=== PATIENT | female | born 1950 | race Caucasian/White ===

== ENCOUNTER 2018-06-09 00:36 | Outpatient (CLI) | payer MEDICARE, BC, SELFPAY ==
--- NOTE | 2018-06-09 14:30 | DI.RAD_ITS ---
SYMPTOMS/DIAGNOSIS: SCREENING FOR OSTEOPOROSIS IN POSTMENOPAUSAL WOMAN, Z78.0 DEXA SCAN: Routine examination. No priors. Evaluation of the lateral spine image shows no compression deformities. Evaluation of the left hip shows a total T score of -0.9 and a Z score of 0.5. This is within normal limits. Evaluation of the lumbar spine shows a total T score of -1.3 and a Z score of 0.6. This is consistent with osteopenia and an increased fracture risk. There is no evidence of osteoporosis. IMPRESSION: Osteopenia in the lumbar spine.
--- NOTE | 2018-06-09 14:48 | DI.MAMMO_ITS ---
SYMPTOMS/DIAGNOSIS: SCREENING, Z12.31 MAMMOGRAMS: Mammograms were interpreted according to the usual protocol including computer analysis with CAD system, tomosynthesis and C view imaging. Comparison is with the prior examinations. No masses or microcalcifications are seen. There is nothing to suggest malignancy. IMPRESSION: Negative mammogram. Routine screening is recommended. Category 1 , breast density A. MQSA ASSESSMENT OF FINDINGS: Negative. Category 1. Patient will receive a letter notifying them of these results. BI-RAD category A. The breasts are almost entirely fatty.
== END 2018-06-09 00:56 ==
PROVIDERS: PCP Family Medicine; Visit Provider Family Medicine
DX: Z12.31 Encounter for screening mammogram for malignant neoplasm of breast (principal); M85.88 Other specified disorders of bone density and structure, other site; Z78.0 Asymptomatic menopausal state
CPT/HCPCS: 77063; 77067; 77080

== ENCOUNTER 2019-06-03 15:54 | Outpatient (REF) | payer MEDICARE, BC, SELFPAY ==
[2019-06-03 13:59] LABS: Anion Gap 7.7 mmol/L (3-11); BUN 15 mg/dL (7-18); CO2 30.3 mmol/L (21.0-32.0); CREATININE 0.78 mg/dL (0.55-1.02); Calcium 8.8 mg/dL (8.5-10.1); Calculated LDL 49 mg/dL; Chloride 108 mmol/L (98-107); Cholesterol 119 mg/dL (50-200); Glucose 86 mg/dL (70-100); HDL Cholesterol 61 mg/dL (40-60); Potassium 3.8 mmol/L (3.5-5.1); Sodium 146 mmol/L (136-145); Triglyceride 47 mg/dL (30-150)
[2019-06-03 14:32] LABS: Vitamin D 25 Total 29.9 ng/ml (30-100)
== END 2019-06-03 16:14 ==
LOC: NCHCN 15:54
PROVIDERS: PCP Family Medicine; Visit Provider Family Medicine
DX: E78.5 Hyperlipidemia, unspecified (principal); Z72.0 Tobacco use; M85.80 Other specified disorders of bone density and structure, unspecified site
CPT/HCPCS: 80048; 80061; 82306

== ENCOUNTER 2021-04-12 11:05 | Emergency (ER) | payer MEDICARE, BC, SELFPAY ==
[2021-04-12] VITALS (25 sets, daily range): BP systolic 168–209; BP diastolic 77–107; PULSE 57–92; RESP 12–27; TEMP 36.9; O2SAT 96–99
--- NOTE | 2021-04-12 11:00 | RT.EKG_ITS ---
APPROVED REPORT Exam: Resting ECG Reason for Exam: dizzy Patient Location: E HR:71 bpm ECG Measurements Heart Rate 71 AXIS IA 127 P 74 QRSd 89 QRS -2 QT 425 T 48 QTc 463 Conclusion Sinus rhythm...normal P axis, V-rate 60- 99 Probable left atrial enlargement...P >50mS, <-0.10mV V1 Nonspecific T abnormalities, lateral leads...T <-0.10mV, I aVL V5 V6. Sinus. No STEMI. I have reviewed and interpreted ECG and agree with software generated interpretation.
--- NOTE | 2021-04-12 11:24 | W.ED.GENAD ---
Discharge Plan Disposition Patient Disposition: HOME Condition: Improving Discharge Details Clinical Impression: Elevated blood pressure reading, Headache Primary Care Provider: Alia Lopez ED Provider: Yeny Forte Home Meds and New Rx's Prescriptions: New propranolol 40 mg tablet 40 mg PO BID Qty: 60 RF: 0 Continued multivitamin [Daily Multi-Vitamin] 1 EACH tablet 1 tab PO DAILY RF: 0 aspirin 81 MG tablet,chewable 81 mg PO HS RF: 0 atorvastatin 20 mg tablet 20 mg PO HS RF: 0 varenicline [Chantix Continuing Month Box] 1 mg tablet RF: 0 Discharge Instructions Instructions: Vertigo (ED), Hypertension (ED) Additional Instructions: Your workup here today including exam, imaging and labs, are reassuring. I am concerned that her elevated blood pressure caused your headache. Your symptoms during the night sound like vertigo but you were not having these symptoms at the time of evaluation today. Please discuss further with your primary care. Please take the Propranolol as prescribed. Take a dose this evening. Please follow up with your primary care next week for reevaluation. Please continue to monitor your blood pressure at home and keep a journal of your readings. If you develop shortness of breath, chest pain, headache or other new/worsening symptoms please seek care urgently once again. Referrals: Alia Lopez MD [Primary Care Provider] - Discharge Data Discharge Date/Time-TO BE ENTERED AT DEPARTURE: 04/12/21 14:11 Medical Decision Making Patient is a pleasant 70-year-old female presenting today from accompanied by her , with chief complaint of elevated blood pressure. She reports that middle of the night she rolled over and had a sudden onset of room spinning. States this lasted approximately 10 minutes and spontaneously resolved while she was at rest. This morning, she had no recurrence of symptoms but has been took her blood pressure and noted that a diastolic to be over 100. Systolic approaching 200. This is unusual for the patient. She does not have previous diagnosis of hypertension is not on any antihypertensive medications. She denies any chest pain or shortness of breath. No GI upset. States the right side of her neck tight for the past week and relates this to sleeping in unusual position. She has never had any vertiginous symptoms historically. She denies any headache. No recent illness. No fevers or chills. Denies any visual changes. No change in bowel or bladder habits. On exam, patient appears very anxious and is crying easily. She reports that this year is very difficult for her and she has had loss of multiple loved ones. She believes that much of this is stress mediated. Declines any anxiolytics. Her blood pressure is 209/96. Normal heart rate. She does not febrile, normal O2. Normal cardiac auscultation, lungs are clear. No extremity edema. 2+ distal pulses. Abdomen benign. Neuro exam is intact. EKG was obtained and reviewed by Dr. Lewis. Patient is in normal sinus rhythm with a heart rate of 71. Nonspecific T wave abnormalities. No STEMI. Shortly after exam, patient began to endorse a headache. Will give 5 mg of Lopressor. BURDEN completely resolved after lopressor. SBP in the 160s FINDINGS: MEDIASTINUM: Normal. HEART: Normal. PULMONARY VASCULATURE: Normal. LUNGS: Clear. PLEURAL SPACE: No pleural effusion or pneumothorax. BONE:Unremarkable for age. IMPRESSION: No acute abnormality. Labs reviewed, no signficant abnormality. No proteinurea. No luekocytosis. Normal electrolytes, kidney and liver function. Discussed with patient. Diagnosesd with symptomatic hypertension. Will start on antihypertensive. She continues to cry frequently when discussing her current social stressors. Questioning if propranolol is good choice as this may also help with her anxiety. Consulted with Dr. Lopez who agreed with choice of propranolol. Recommends Propranolol 40mg BID. She will attempt to get her in promptly for nurse visit next week. Patient, her and I discussed these recommendations. Patient requesting d/c. Feeling much imrpved. She will take dose of propranolol this evening. Encouraged stress reduction. She iwll f/u with PCP next week. She will journal BP at home. Strict return precautions were discussed. All of her quesitons and concerns were addressed, she is in agreement with this plan. HPI General Mode of arrival: ambulatory. Date/Time Provider Initiated Documentation: 04/12/21 11:08. Limitations to Documentation: no limitations. Information obtained by: patient and RN notes reviewed. History of Present Illness 70 year old F presents to the emergency department with the chief complaint of elevated BP, dizziness, described as moderate, Quality is described as other (denies pain), and is localized to the head and neck (tight right neck). Patient reports no radiation. Patient started experiencing this hour(s) and it has been now resolved (vertigo symptoms are resolved). No relieving factors improve symptom(s), Movement worsens symptoms (came on when she rolled over in the night) . Patient notes denies chest pain, cough, fever/chills, headaches, loss of appetite, nausea/vomiting, rash, shortness of breath, syncope and weakness. Patient did receive the following treatments prior to arrival, none Related Data Home Medications Medication Instructions Recorded Confirmed aspirin 81 mg PO HS 03/27/13 04/12/21 multivitamin [Daily Multi-Vitamin] 1 tab PO DAILY 03/27/13 04/12/21 atorvastatin 20 mg PO HS 04/12/21 04/12/21 propranolol 40 mg PO BID #60 tab 04/12/21 varenicline [Chantix Continuing mg 04/12/21 04/12/21 Month Box] Previous Rx's Medication Instructions Recorded propranolol 40 mg PO BID #60 tab 04/12/21 Allergies Allergy/AdvReac Type Severity Reaction Status Date / Time glycopyrrolate [From Joanie] AdvReac Intermediate FLUSHING,INCREASED Unverified 04/12/21 11:21 HEART RATE General Stated Complaint: Dizzy/Sync VANDANA: 2 Review of Systems Constitutional Constitutional: Reports as per HPI, Denies chills, Denies fever(s), Denies headache(s), Denies lethargy and Denies poor appetite Eyes Eyes: Denies change in vision ENT Ears, Nose, Mouth, and Throat: Denies abnormal hearing, Reports vertigo, Reports dizziness, Denies ear discharge, Denies otalgia, Denies headache(s), Denies hearing loss and Denies tinnitus Cardiovascular Cardiovascular: Reports as per HPI, Denies chest pain, Denies chest pain with activity, Denies lightheadedness, Denies radiating jaw, neck or arm pain, Denies dyspnea and Denies dyspnea on exertion Respiratory Respiratory: Reports as per HPI, Denies chest congestion, Denies cough, Denies pain on inspiration, Denies pain with cough, Denies dyspnea, Denies dyspnea on exertion and Denies wheezing Gastrointestinal Gastrointestinal: Reports as per HPI, Denies abdominal pain, Denies diarrhea, Denies nausea and Denies vomiting Musculoskeletal Musculoskeletal: Reports as per HPI and Denies back pain Integumentary/Breasts Skin/Breast: Reports as per HPI and Denies rash Neurologic Neurologic: Reports as per HPI, Denies abnormal hearing, Reports vertigo, Reports dizziness and Denies headache(s) Allergic/Immunologic Allergic/Immunologic: Denies wheezing [facility] Social History Smoking/Tobacco Use Status: Current every day Tobacco Type: cigarettes Smoking risk assessment performed?: Yes Alcohol Intake: never Drug use: Never Substance use type: does not use Do you feel safe at home: Yes Do you feel safe in your relationship?: Yes Exam Const General: cooperative, healthy appearing, comfortable, no acute distress, well developed and anxious Nutritional Appearance: well nourished and overweight Orientation: alert, awake and oriented x3 HENMT Head: normal to inspection and normocephalic Ears: hearing grossly normal bilaterally, external ears normal and TM's normal bilaterally Face and sinus: normal facial exam Mouth: oral mucosae normal and moist mucous membranes Throat: posterior oropharynx normal Eyes General: appearance normal, both eyes and all related structures Visual Renee: normal visual renee by confrontation Alignment and Position: alignment normal and position normal Eyelids: eyelids normal Pupils: PERRL, normal by confrontation and accommodation normal EOM: EOM intact bilaterally and No nystagmus Neck Neck: normal visual inspection and no meningeal signs Resp Effort & Inspection: normal respiratory effort, able to speak in complete sentences and no respiratory distress Auscultation: clear to auscultation bilaterally, no rales, no rhonchi and no wheezes Cardio Rate: regular rate Rhythm: regular rhythm Heart Sounds: S1 normal and S2 normal GI Inspection: normal to inspection Palpation: soft, no hepatosplenomegaly, guarding and nontender Skin General skin exam: no rashes or lesions noted Trauma: no lacerations or abrasions Neuro General: patient alert, patient awake and patient oriented x3 Cranial Nerves: no nystagmus Cognition: normal cognition Speech: speech normal Gait: normal gait Extrem General: normal to inspection, capillary refill normal, no pedal edema, no calf tenderness and normal gait Psych Appearance: grossly normal and well kempt Mental Status: mental status grossly normal Speech and Movement: speech and movement normal Course Vital Signs Vital signs: Vital Signs Temperature 36.9 C 04/12/21 11:15 Pulse 85 04/12/21 11:15 Respiratory Rate 16 04/12/21 11:15 Blood Pressure 209/96 H 04/12/21 11:15 Pulse Oximetry 99 04/12/21 11:15 Temperature 36.9 C 04/12/21 11:15 Temperature Source Skin 04/12/21 11:15 Pulse 85 04/12/21 11:15 Respiratory Rate 16 04/12/21 11:15 Respiratory Effort Non-Labored 04/12/21 11:20 Blood Pressure 209/96 H 04/12/21 11:15 Blood Pressure Position Sitting 04/12/21 11:15 Pulse Oximetry 99 04/12/21 11:15 Oxygen Delivery Method Room Air 04/12/21 11:15 Oxygen Flow Rate 0 04/12/21 11:15 Pain Level 0 04/12/21 11:15
--- NOTE | 2021-04-12 11:30 | DI.CT_ITS ---
Exam(s) CT BRAIN NECK CTA EXAM: CT BRAIN NECK CTA CLINICAL HISTORY: vertigo, right sided neck discomfort, elevated BP. TECHNIQUE: Imaging Protocol: Axial CT angiography was performed with multi-slice acquisition and mu lti-planar and/or 3D reconstructions. CONTRAST MATERIAL: Intravenous: Omnipaque 350 Contrast volume: 85 cc COMPARISON: No exams were available for comparison FINDINGS: CT Head W/O and W contrast: Ventricles and Extra axial spaces: Normal in size and morphology for the patient's age. Hemorrhage: None. Cerebral parenchyma: Normal. Midline shift: None. Brainstem/Cerebellum: Normal. Calvarium: Normal. Visualized Paranasal sinuses/Mastoids: Clear. Soft Tissues: Unremarkable. Enhancement: Normal. CTA Brain W: Internal Carotid Arteries: Petrous: Normal. Cavernous: Normal. Cerebral: Normal. Middle Cerebral Arteries: Right: No aneurysm, occlusion or significant stenosis. Left: No aneurysm, occlusion or significant stenosis. Anterior Cerebral Arteries: Right: No aneurysm, occlusion or significant stenosis. Left: No aneurysm, occlusion or significant stenosis. Posterior cerebral Arteries: Right: No aneurysm, occlusion or significant stenosis. Left: No aneurysm, occlusion or significant stenosis. Vertebral Arteries: Right: No aneurysm, occlusion or significant stenosis. Left: No aneurysm, occlusion or significant stenosis. Basilar Artery: No aneurysm, occlusion or significant stenosis. CTA Neck W: Common Carotid: Right: No aneurysm, occlusion or significant stenosis. Left: No aneurysm, occlusion or significant stenosis. External Carotid: Right: No aneurysm, occlusion or significant stenosis. Left: No aneurysm, occlusion or significant stenosis. Internal Carotid: Quite tortuous, extending toward the midline anterior to the thoracic spine. No vi sible plaque. Right: No aneurysm, occlusion or significant stenosis. Left: No aneurysm, occlusion or significant stenosis. Vertebral Artery: Right: No aneurysm, occlusion or significant stenosis. Left: No aneurysm, occlusion or significant stenosis. Lung Apices: Normal. Bones: Degenerative changes in the cervical spine.. Soft Tissues: Normal. IMPRESSION: 1. Normal CTA examination of the [place]. 2. Unremarkable CT Head. 3. Tortuous internal carotid arteries, otherwise normal CTA examination of the neck. RADIATION DOSE DELIVERED: 1,879.77mGy.cm Total DLP DATA REPOSITORY: All CT scans at this facility are submitted to the National Radiology Data Registry (NRDR) Dose Index Registry (DIR) with the [employer] (A[employer]). RADIATION OPTIMIZATION: All CT scans at this facility use at least one of these dose optimization te chniques: automated exposure control; mA and/or kV adjustment per patient size (includes targeted exa ms where dose is matched to clinical indication); or iterative reconstruction.
[2021-04-12 11:47] LABS: Abs Immature Grans 0.02 10^3/uL (0.0-0.06); Absolute Basophil Count 0.05 10^3/uL (0.0-0.2); Absolute Eosinophil Count 0.19 10^3/uL (0.0-0.7); Absolute Lymphocyte Count 1.76 10^3/uL (1.2-3.4); Absolute Neutrophil Count 5.51 10^3/uL (1.2-6.7); Basophils % 0.6; Eosinophils % 2.4; HCT 47.2 % (36.0-46.0); HGB 14.9 g/dL (11.2-15.7); Immature Grans % 0.2; Lymphocytes % 21.9; MCH 28.9 pg (27.0-33.0); MCHC 31.6 % (32.0-36.0); MCV 91.5 fL (80-95); MPV 11.7 fL (8.0-11.0); Monocytes % 6.2; Neutrophils % 68.7; Nucleated RBC 0 %; Platelet Count 215 10^3/uL (130-400); RBC 5.16 10^6/uL (3.93-5.22); RDW 12.5 % (11.7-14.6); RDW-SD 42.3 fL; WBC 8.03 10^3/uL (4.4-10.8)
[2021-04-12] MEDS: Metoprolol 5 MG/5 ML VIAL IVP (11:58)
[2021-04-12 12:01] LABS: INR 1.1 (0.9-1.1); PTT Activated 22.7 sec (21.0-27.5); Prothrombin Time 11.4 sec (9.3-11.0)
[2021-04-12 12:10] LABS: ALT 28 U/L (14-59); AST 35 U/L (15-37); Albumin 3.9 g/dL (3.4-5.0); Alkaline Phosphatase 114 U/L (46-116); Anion Gap 6.9 mmol/L (3-11); BUN 12 mg/dL (7-18); Bilirubin, Total 0.6 mg/dL (0.2-1.0); CO2 28.1 mmol/L (21.0-32.0); CREATININE 0.7 mg/dL (0.55-1.02); Calcium 9.4 mg/dL (8.5-10.1); Chloride 108 mmol/L (98-107); Glucose 98 mg/dL (74-106); Potassium 4.7 mmol/L (3.5-5.1); Sodium 143 mmol/L (136-145); TSH 1.56 uIU/mL (0.36-3.74); Total Protein 7.4 g/dL (6.4-8.2); Troponin I < 0.05 ng/mL (<0.06)
[2021-04-12 12:28] LABS: Magnesium 1.9 mg/dL (1.8-2.4)
[2021-04-12 12:29] LABS: Bilirubin Negative (Negative); Blood Negative (Negative); Clarity Clear (Clear); Glucose Negative (Negative); Ketones Negative (Negative); Leukocyte Esterase Negative (Negative); Nitrite Negative (Negative); Urobilinogen 0.2 EU/dL (Up TO 0.2)
--- NOTE | 2021-04-12 13:00 | DI.RAD_ITS ---
Exam(s) XR CHEST 2V PA LATERAL EXAM: XR CHEST 2V PA LATERAL CLINICAL HISTORY: HTN urgency TECHNIQUE: 2D digital imaging was performed. COMPARISON: No exams were available for comparison FINDINGS: MEDIASTINUM: Normal. HEART: Normal. PULMONARY VASCULATURE: Normal. LUNGS: Clear. PLEURAL SPACE: No pleural effusion or pneumothorax. BONE:Unremarkable for age. IMPRESSION: No acute abnormality. DATA REPOSITORY: RADIATION DOSE DELIVERED:
[2021-04-12] MEDS: Omnipaque 350 MG/ML 100 ML BTL IJ (14:07)
== END 2021-04-12 14:11 | disposition home or self-care (01) ==
PROVIDERS: Emergency Provider Physician Assistant; PCP Family Medicine
DX: R03.0 Elevated blood-pressure reading, without diagnosis of hypertension (principal); R51.9 Headache, unspecified; F41.9 Anxiety disorder, unspecified; Z79.82 Long term (current) use of aspirin; R42 Dizziness and giddiness; R79.1 Abnormal coagulation profile
CPT/HCPCS: 36415; 70496; 70498; 80053; 93005; 96374; 99285; 71046; 81003; 83735; 84443; 84484; 85025; 85610; 85730; 93010; 99284; J3490

== ENCOUNTER 2021-05-16 10:05 | Outpatient (REF) | payer MEDICARE, BC, SELFPAY ==
[2021-05-16 20:35] LABS: Anion Gap 5.5 mmol/L (3-11); BUN 20 mg/dL (7-18); CO2 31.5 mmol/L (21.0-32.0); CREATININE 0.7 mg/dL (0.55-1.02); Calcium 9.2 mg/dL (8.5-10.1); Chloride 108 mmol/L (98-107); Glucose 79 mg/dL (74-106); Potassium 4.4 mmol/L (3.5-5.1); Sodium 145 mmol/L (136-145)
== END 2021-05-16 10:06 | disposition home or self-care (01) ==
LOC: NCHCN 10:05
PROVIDERS: PCP Family Medicine; Visit Provider Family Medicine
DX: Z51.81 Encounter for therapeutic drug level monitoring (principal)
CPT/HCPCS: 80048

== ENCOUNTER 2021-06-28 01:14 | Outpatient (CLI) | payer MEDICARE, BC, SELFPAY ==
--- NOTE | 2021-06-28 10:43 | DI.MAMMO_ITS ---
Exam(s) MAMMO SCREENING EXAM: MAMMO SCREENING CLINICAL HISTORY: SCREENING MAMMO FOR BREAST CANCER Z12.31. TECHNIQUE: Bilateral full field digital CC and MLO mammographic images were obtained with 3D tomosyn thesis and utilizing computer aided detection (CAD). COMPARISON: Prior mammograms dating back to 2011, the most recent being May 2018. FINDINGS: There are no CAD designations. There are no new spiculated masses nor malignant appearing microcalcification groups. There is no significant architectural distortion nor skin thickening-retraction. IMPRESSION: No radiographic evidence of malignancy. BI-RADS Category 1 - Negative Breast Density - Category B - Scattered areas of fibroglandular density Breast density Category C or D implies that the patient has dense breast tissue. Dense breast tissue can make it harder to find cancer on a mammogram. Dense breast tissue is also associated with an incr eased risk of breast cancer. This information about the result of the mammogram report was provided to the patient to raise their awareness. Use this report when you speak with the patient about their risks for breast cancer, which includes their family history. At that time, you may recommend additional screening tests (Ultrasoun d or MRI) as these tests may add significant information. A negative radiographic report should not delay biopsy if a dominant or clinically suspicious mass is present. Up to ten percent of cancers are not identified on mammography. A negative report may reinforce clinical impression. Adenosis and dense breasts may obscure an underlying neoplasm. False positive reports average 6 to 10%. Patient will receive a letter notifying them of these results.
== END 2021-06-28 01:34 ==
PROVIDERS: PCP Family Medicine; Visit Provider Family Medicine
DX: Z12.31 Encounter for screening mammogram for malignant neoplasm of breast (principal)
CPT/HCPCS: 77063; 77067

== ENCOUNTER 2021-06-29 18:25 | Outpatient (REF) | payer MEDICARE, BC, SELFPAY ==
[2021-06-29 18:17] LABS: Anion Gap 8.6 mmol/L (3-11); BUN 17 mg/dL (7-18); CO2 29.4 mmol/L (21.0-32.0); CREATININE 0.8 mg/dL (0.55-1.02); Calcium 9.3 mg/dL (8.5-10.1); Chloride 108 mmol/L (98-107); Glucose 96 mg/dL (74-106); Potassium 3.9 mmol/L (3.5-5.1); Sodium 146 mmol/L (136-145)
== END 2021-06-29 18:26 | disposition home or self-care (01) ==
LOC: NCHCN 18:25
PROVIDERS: PCP Family Medicine; Visit Provider Family Medicine
DX: I10 Essential (primary) hypertension (principal)
CPT/HCPCS: 80048

== ENCOUNTER 2022-02-18 13:32 | Emergency (ER) | payer MEDICARE, BC, SELFPAY ==
[2022-02-18] VITALS (66 sets, daily range): BP systolic 84–133; BP diastolic 32–63; PULSE 65–85; RESP 18; TEMP 36.6–37; O2SAT 95–100
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
--- NOTE | 2022-02-18 14:00 | DI.RAD_ITS ---
Exam(s) XR WRIST RT COMPLETE EXAM: XR WRIST RT COMPLETE CLINICAL HISTORY: NAREN. TECHNIQUE: 2D digital imaging was performed. COMPARISON: No exams were available for comparison FINDINGS: 3 views There is an impacted and dorsally angulated fracture of the distal radius. Fracture line violates th e radiocarpal joint. There is also an avulsed fracture of the base of the ulnar styloid.. On 1 image there is linear lucency at the level the waist of the scaphoid. Cannot exclude subtle sca phoid waist fracture. Scapholunate distance is normal. IMPRESSION: Impacted fracture of distal radius involving the radiocarpal joint. Ulnar styloid fracture. Possible fracture of the scaphoid DATA REPOSITORY: RADIATION DOSE DELIVERED:
[2022-02-18] MEDS: Acetaminophen 325 MG TAB 650 MG PO (14:15)
[2022-02-18] MEDS: Ibuprofen 600 MG TAB PO (14:15)
--- NOTE | 2022-02-18 16:00 | DI.RAD_ITS ---
Exam(s) XR WRIST RT LIMITED EXAM: XR WRIST RT LIMITED CLINICAL HISTORY: s/p reduction. TECHNIQUE: 2D digital imaging was performed. COMPARISON: CR XR WRIST RT COMPLETE from 02/18/2022 FINDINGS: Two views Post closed reduction views reveal some mint in alignment fracture fragments radius and styloid. IMPRESSION: DATA REPOSITORY: RADIATION DOSE DELIVERED:
[2022-02-18 17:21] LABS: Source Nasal/Nares
[2022-02-18 18:12] LABS: COVID-19 PCR Negative (Negative)
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
== END 2022-02-18 17:30 | disposition home or self-care (01) ==
PROVIDERS: Emergency Provider Physician Assistant; PCP Family Medicine
DX: S52.501A Unspecified fracture of the lower end of right radius, initial encounter for closed fracture (principal); S52.611A Displaced fracture of right ulna styloid process, initial encounter for closed fracture; I95.9 Hypotension, unspecified; I10 Essential (primary) hypertension; F17.210 Nicotine dependence, cigarettes, uncomplicated; Z20.822 Contact with and (suspected) exposure to COVID-19; V86.56XA Driver of dirt bike or motor/cross bike injured in nontraffic accident, initial encounter; Y92.481 Parking lot as the place of occurrence of the external cause
CPT/HCPCS: 87635; 99283; 99284; 25605; 73100; 73110; J3490

== ENCOUNTER 2022-02-19 10:53 | Day surgery (SDC) | payer MEDICARE, BC, SELFPAY ==
[2022-02-19] VITALS (10 sets, daily range): BP systolic 84–132; BP diastolic 11–60; PULSE 63–83; RESP 16–74; TEMP 36.2–36.6; O2SAT 94–99; BMI 31.0
--- NOTE | 2022-02-19 11:39 | W.PM.DSUDISC ---
Discharge Plan Disposition Patient Disposition: HOME Condition: Good Discharge Details Reason For Visit: (r) Orif Distal Radius Attending Provider: Rolly Richardson Primary Care Provider: Alia Lopez Home Meds and New Rx's Prescriptions: New acetaminophen 500 mg capsule 1,000 mg PO Q8H PRN PRNQty: 90 0RF ibuprofen 600 mg tablet 600 mg PO TID Qty: 90 0RF tramadol 50 mg tablet 50 mg PO Q6H PRNQty: 10 0RF Continued multivitamin [Daily Multi-Vitamin] 1 EACH tablet 1 tab PO DAILY aspirin 81 MG tablet,chewable 81 mg PO HS atorvastatin 20 mg tablet 20 mg PO HS varenicline [Chantix Continuing Month Box] 1 mg tablet 1 mg PO DAILY PRN propranolol 40 mg tablet 40 mg PO BID Qty: 60 0RF chlorthalidone 25 mg tablet 25 mg PO DAILY lisinopril 40 mg tablet 40 mg PO QHS amlodipine 2.5 mg tablet 2.5 mg PO DAILY Qty: 20 0RF Discharge Instructions Additional Instructions: Wrist Fracture Fixation Discharge Instructions Activity: You should keep the hand/wrist elevated as much as possible for the first few days. You may use the other fingers as tolerated but avoid trying to do too much too soon. You may perform light activities with the splint in place. Dressing/Cast: Your splint should stay in place at all times. Do NOT get it wet. You may loosen the INDIGO wrap if you feel it is too tight and then rewrap more loosely. Medications: - You should take Tylenol and Ibuprofen for baseline pain control. - You have been prescribed a stronger pain medication, Tramadol, for breakthrough pain. - You may apply ice over the wrist, just double bag so it doesn't get wet. Follow-up: 10-14 days Referrals: Rolly Richardson MD [ [facility] STAFF PHYSICIAN] - Equipment/Supplies: Splint Activity:: Activity as Tolerated Remove Dressings/Wound Care:: Do Not Remove Shower/Bathe:: Cover Diet:: As Tolerated Discharge Orders Discharge Orders: Discharge Order (Routine); Ordered 02/19/22 Ordered By: Emma [place]
[2022-02-19] MEDS: Lactated Ringers 1,000 ML 80 ML IV (11:55)
--- NOTE | 2022-02-19 12:01 | W.ANESPRE ---
General Info Date of Service Date Performed: 02/19/22 Height: 5 ft 4 in Weight: 82.1 kg Body Mass Index (BMI): 31.0 Surgical Procedure: Operation Date: 02/19/22 14:40 Proposed Procedure Side Surgeon p Wrist ORIF Distal Radius Right Rolly Richardson MD Meds Allergies and Home Medications Allergies Allergy/AdvReac Type Severity Reaction Status Date / Time glycopyrrolate [From Robinul] AdvReac Intermediate FLUSHING,INCREASED Unverified 02/19/22 11:22 HEART RATE Home Medication Medication Instructions Recorded aspirin 81 mg chewable tablet 81 mg PO HS 03/27/13 multivitamin (Daily Multi-Vitamin 1 tab PO DAILY 03/27/13 tablet) atorvastatin 20 mg tablet 20 mg PO HS 04/12/21 propranolol 40 mg tablet 40 mg PO BID #60 tabs 04/12/21 varenicline 1 mg tablet (Chantix 1 mg PO DAILY PRN 04/12/21 Continuing Month Box) amlodipine 2.5 mg tablet 2.5 mg PO DAILY #20 tabs 02/18/22 chlorthalidone 25 mg tablet 25 mg PO DAILY 02/18/22 lisinopril 40 mg tablet 40 mg PO QHS 02/18/22 acetaminophen 500 mg capsule 1,000 mg PO Q8H PRN PRN #90 caps 02/19/22 ibuprofen 600 mg tablet 600 mg PO TID #90 tabs 02/19/22 oxycodone 5 mg tablet 5 mg PO Q4H PRN #10 tabs 02/19/22 Current Visit Medications: Current Medications Generic Name Dose Route Start Last Admin Trade Name Christiano PRN Reason Stop Dose Admin Acetaminophen 650 mg 02/19/22 11:39 Acetaminophen 325 Mg Tab PO Q4H PRN PRN Ringer's Solution 1,000 mls @ 80 mls/hr 02/19/22 06:00 IV 03/21/22 23:59 INFUSION ROSENDO Cefazolin Sodium/Dextrose 2 gm in 50 mls @ 100 mls/hr 02/19/22 06:00 Ancef Duplex IVPB 03/21/22 23:59 PREOP ROSENDO Ondansetron HCl 4 mg/ Sodium 52 mls @ 200 mls/hr 02/19/22 11:39 Chloride IVPB Q6H PRN PRN IV Miscellaneous Supplies 1 each 02/19/22 06:00 Iv Access IV 03/21/22 23:59 DIRECTED ROSENDO Oxycodone HCl 5 mg 02/19/22 11:39 Oxycodone 5 Mg Tab PO Q3H PRN PRN Pain Sodium Chloride 0 ml 02/19/22 06:00 Normal Saline Flush 10 Ml Syr IV 03/21/22 23:59 PRN PRN Sodium Chloride 0 ml 02/19/22 06:00 Normal Saline 10 Ml Vial IJ 03/21/22 23:59 DIRECTED PRN Sterile Water 0 ml 02/19/22 06:00 Water,Injection,Sterile 10 Ml Vial IJ 03/21/22 23:59 DIRECTED PRN PFSH Active Problems Active Problems: Problem Status Onset Code Benign hypertension I10 Chest pain 03/27/13 R07.9 Bradycardia R00.1 Bilateral tubal ligation Elevated blood pressure reading R03.0 Headache R51.9 Distal radius fracture S52.509A Fracture of distal end of ulna S52.609A Hypotension I95.9 Closed fracture of right distal radius and ulna S52.501A, S52.601A Medical History Medical History (Updated 02/19/22 @ 11:30 by Kristy Williamson RN) Bradycardia Chest pain Hypercholesteremia Hypertension Surgical History Surgical History (Updated 02/19/22 @ 11:29 by Kristy Williamson RN) H/O tubal ligation Tobacco Smoking/Tobacco Use Status: Current every day Tobacco Type: cigarettes Smoking cigarettes per day: 8 Alcohol Alcohol Intake: never Substance Use Substance use: Never Substance use type: does not use Vital Signs and Lab Results Vital Signs Most Recent Vital Signs in EMR: Most Recent Vital Signs Temp Pulse Resp BP Pulse Ox 36.6 C 83 18 118/56 L 99 02/19/22 11:14 02/19/22 11:14 02/19/22 11:14 02/19/22 11:14 02/19/22 11:14 Lab Results Blood Type / Crossmatch: No Data to Display Complete Blood Count: No Data to Display Complete Metabolic Panel: No Data to Display Liver Function Panel: No Data to Display Coagulation Panel: No Data to Display Cardiac Panel: No Data to Display Arterial Blood Gas: No Data to Display Venous Blood Gas: No Data to Display Pancreas Panel: No Data to Display Thyroid Panel: No Data to Display Infectious Disease: Coronavirus (COVID-19)(PCR) Negative (Negative) 02/18/22 17:03 Coronavirus 2019 Source Nasal/Nares 02/18/22 17:03 Blood Cultures: No Data to Display Toxicology Panel: No Data to Display Imaging and Studies Imaging and Studies Study information below may be from another EMR and interpreted by another provider. Please see original notes in EMR for more complete details. EKG Summary: Conclusion Sinus rhythm...normal P axis, V-rate 60- 99 Probable left atrial enlargement...P >50mS, <-0.10mV V1 Nonspecific T abnormalities, lateral leads...T <-0.10mV, I aVL V5 V6. Stress Test Summary: EJECTION FRACTION: 70% GATED WALL MOTION: CONCLUSION: NORMAL PERFUSION Anesthesia Assessment and Plan Anesthesia History Personal History: No History of Anesthesia Complications Family History: No Family History of Anesthesia Complications Exercise Tolerance Exercise Tolerance: Metabolic Equivalents>4 Pertinent Negatives Pertinent Negatives: No Symptoms of GERD, No Major Cardiovascular Symptoms or Complaints and No Major Pulmonary Symptoms or Complaints Cardiac & Pulmonary Exam Cardiac Exam: Normal S1/S2 Heart Sounds Pulmonary Exam: Clear Bilateral Breath Sounds Implantable Cardiac Device Does patient have a Pacemaker or an ICD?: No Airway Exam Known Difficult Airway: No Mallampati Class: 2 Mouth Opening: Normal (> 3cm) Thyromental Distance: Greater than 3 cm Neck Range of Motion: Full ROM Neck Circumference: Normal Teeth Condition: Normal Dentition and Removable Dentures/Plates Upper ASA Classification ASA Score: ASA 2 Emergency Case?: No NPO Status NPO Status: NPO Clears >2 hours, Solids >8 hours Anesthesia Plan Resuscitation Status: Full Code Anesthesia Technique: General Anesthesia Airway Planned: Endotracheal Tube Pain Management: Surgeon and patient request nerve block Monitors Used: Standard Monitors
--- NOTE | 2022-02-19 12:37 | W.ANESNERVE ---
Nerve Block Single Injection Procedure Date and Time Date Performed: 02/19/22 Procedure Start: 12:30 Location Where Procedure Performed Procedure Location: Operating Room Procedure Stop: 13:34 Reason Performed: Postoperative Analgesia Requesting Provider: Rolly Richardson Timeout Performed Timeout Performed: No Monitoring Used ECG, Blood Pressure and SpO2 Sterility Sterility: Hand Hygiene, Surgical Mask, Eye Protection and Chlorhexidine Sedation Given During Procedure Sedation Given (Indicate Dose Given): No Sedation given Patient Mental Status Patient Mental Status: Awake Nerve Block 1st Nerve Block: Laterality: Right Block Type: Supraclavicular Needle / Catheter Used: 80mm SonoPlex II Local Anesthetic Bolus (Indicate Dose Given): Lidocaine used for local infiltration of skin, Injected in 3-5ml increments after negative blood aspiration and Bupivacaine 0.5% Dose:: 15 mL Additives (Indicate Dose Given): Precedex Dose:: 30 mcg Ultrasound: Sterile probe cover and gel used Ultrasound Image Saved?: Yes Nerve Stimulator: Not Used Paresthesia: None Procedure Tolerated: No Complications Procedure Outcome: Successful Performed By: Candy Castañeda
--- NOTE | 2022-02-19 12:45 | DI.RAD_ITS ---
Exam(s) XR WRIST RT LIMITED EXAM: XR WRIST RT LIMITED CLINICAL HISTORY: right wrist fracture TECHNIQUE: 2D and realtime digital imaging was performed. CONTRAST MATERIAL: Refer to procedure report. COMPARISON: CR XR WRIST RT LIMITED from 02/18/2022 FINDINGS: Fluoroscopy was provided for Dr. Richardson during the performance of a reduction and internal fixatio n of the distal radial fracture. Please refer to the procedure report for complete details. Ka,r=0.23 mGy IMPRESSION: RADIATION DOSE DELIVERED:
[2022-02-19] MEDS: ceFAZolin 2 GM/50 ML BAG IVPB (13:15)
[2022-02-19] MEDS: Bupivacaine 0.25% Pres-Free 30 ML VIAL (14:00)
--- NOTE | 2022-02-19 14:57 | W.ANESPOSTOP ---
Postoperative Evaluation Date, Time and Location Date Performed: 02/19/22 Time Performed: 14:57 Patient Location: PACU Vital Signs Most Recent Imported Vital Signs: Most Recent Vital Signs Temp Pulse Resp BP Pulse Ox 36.5 C 66 17 129/47 L 96 02/19/22 14:20 02/19/22 14:45 02/19/22 14:45 02/19/22 14:45 02/19/22 14:45 Pain Score Most Recent Pain Score: Most Recent Pain Score Pain Level 2 02/19/22 14:45 Assessment Mental Status: Awake (Alert & Oriented to Patient Baseline) Airway and Respiratory Function: Patent airway with normal (patient baseline) respiratory exam Cardiovascular Function: Hemodynamically Stable Hydration Status: Adequately Hydrated Nausea & Vomiting: No Nausea or Vomiting Pain: Pain is tolerable per patient Peripheral Nerve Block: Regional nerve block not resolved at time of post operative discharge
--- NOTE | 2022-02-19 17:31 | ROE_ITS ---
Date of service: 02/19/22 Time of Service: 14:20 Operative Note Operative Note DATE OF PROCEDURE: 02/19/22 PRE-OP DIAGNOSIS: Right Distal Radius Fracture POST-OP DIAGNOSIS: same PROCEDURE: Open Reduction and Internal Fixation of Right Distal Radius SURGEON: Rolly Richardson [employer]LE[employer] SUPERVISOR: Emma Canada ANESTHESIA TYPE: General LMA/ETT and Primary Nerve Block Refer to Anesthesia Record ESTIMATED BLOOD LOSS: 10 PATHOLOGY: none sent TOURNIQUET TIME: 0 COMPLICATIONS: None Patient was transported to: PACU Patient's condition: stable Indications: Jie is a 71-year-old [id number] female who I have seen for a distal radius fracture. Given the deformity, displacement, fracture pattern, and effect on daily function, I recommended surgical fixation. I reviewed the risk of the procedure to include bleeding, infection co-pay, stiffness, damage to nerves and vessels, damage to muscles and tendons, malunion, nonunion, hardware prominence, tendon rupture, need for repeat procedures. Despite these risks, the patient elected to proceed. Findings: There is a distal radius fracture which had 2 articular segments. It was reduced and fixed with a Synthes volar locking plate. Procedure Description: Deann was greeted in the preoperative holding area. The correct patient and site was confirmed and marked. The history and physical was updated. The consent was reviewed the patient and signed. The patient was taken to the PACU for administration of regional anesthetic, supraclavicular block. The patient was taken to the operating room and placed in the supine position. All bony problems were well-padded. The right arm was placed onto a radiolucent hand table. A nonsterile tourniquet was placed high up on the arm. Prophylactic antibiotics in the form of cefazolin were administered. The right arm was prepped with ChloraPrep and draped in a standard fashion. A timeout was performed for safe surgery. A standard longitudinal incision was made overlying the flexor carpi radialis tendon starting at the distal wrist crease and moving proximally. The skin was incised sharply. The flexor carpi radialis tendon and its sheath is identified. The sheath was opened. The tendon was moved ulnarly in the floor of the sheath was incised. Blunt dissection the flexor pollicis longus muscle belly and tendon were also made radially exposing the pronator quadratus and the distal radius. The printer quadratus was elevated with an ulnar-based flap. This exposed the volar distal radius and the fracture. A ross elevator was used for full exposure of the volar surface of the distal radius. The primary fracture line was exposed. Using a series of elevators, curettes, and knife, the fracture was fully debrided of any fibrous tissue and callus formation. I used a freer elevator to help mobilize the fragments. There is 1 main fracture line across the volar aspect of the distal radius and an intra-articular portion of the dorsal, ulnar aspect mostly visible only with x-ray. I then performed a closed reduction. Using gentle traction and fracture manipulation, this reduction was held. Fluoroscopic images were used to confirm adequate reduction. An appropriately sized Synthes volar locking plate was then placed onto the bony surface of the distal radius. Was then held there with a distal radius clamp sandwiching the plate to the distal segment. A single K wire was placed through the distal end. Fluoroscopy was once again used to confirm appropriate positioning of the plate on the distal radius. A reduction K wire was placed into the slotted hole on the shaft but not tightened all the way to allow for manipulation of the distal segment onto the proximal shaft. A single nonlocking screw was placed to the distal portion of the plate securing the plate against the bone of the distal radial metaphysis and reducing the ulnar articular segment. Once again, the plate was evaluated to make sure it was aligned appropriately. The single screw was also checked to make sure it was in appropriate positioning for trajectory of future screws. The remainder of the screws within the volar locking plate were filled with locking screws. These were made sure not to penetrate the dorsal cortex. Once these were applied the proximal portion of the plate was further reduced down onto the shaft, which further reduce the distal segment. This was held in position with a tightened reduction K wire. Fluoroscopy was then used against confirm appropriate reduction. Nonlocking screws were placed within the 3 shaft screw holes. Final x-rays were obtained which demonstrated adequate reduction and positioning of hardware. The dorsal sunrise view was also obtained to ensure correct sizing of screws. The wound was then thoroughly irrigated. The pronator quadratus was reapproximated with a 0 Vicryl. The tourniquet was released and there was no notable vascular injury. The fingers were warm and well-perfused. The deep dermal layer was closed with a 2-0 Vicryl. The skin was closed with 4-0 nylon. The wound was dressed with Xeroform, 4 x 4's, web roll. A short arm splint was applied. At the end the case all counts are correct. Patient was transferred back to the PACU in stable condition.
== END 2022-02-19 16:30 | disposition home or self-care (01) ==
PROVIDERS: PCP Family Medicine; Visit Provider Student in an Organized Health Care Education/Training Program
PROC: 0PSH04Z Reposition Right Radius with Internal Fixation Device, Open Approach (ICD-10-PCS; CPT 25608; principal; 2022-02-19 14:30)
DX: S52.501A Unspecified fracture of the lower end of right radius, initial encounter for closed fracture (principal); I10 Essential (primary) hypertension; E78.00 Pure hypercholesterolemia, unspecified; F17.210 Nicotine dependence, cigarettes, uncomplicated; V39.89XA Occupant (driver) (passenger) of three-wheeled motor vehicle injured in other specified transport accidents, initial encounter
CPT/HCPCS: 25608; C1776; 76942; 73100; J0690; J1100; J1885; J2370; J2405

== ENCOUNTER 2022-03-01 09:04 | Outpatient (CLI) | payer MEDICARE, BC, SELFPAY ==
--- NOTE | 2022-03-01 09:00 | DI.RAD_ITS ---
Exam(s) XR WRIST RT LIMITED EXAM: XR WRIST RT LIMITED INDICATION: 1st post op R DISTAL RADIUS/ULNA. COMPARISON: CR XR WRIST RT LIMITED from 02/19/2022 TECHNIQUE: 2D digital imaging was performed. Two views. FINDINGS: A fixation plate is again noted along the volar aspect of the distal radius for fracture fixation . There has been no change in hardware or fracture alignment. The ulnar styloid fracture is unchanged. No new abnormalities. DATA REPOSITORY: RADIATION DOSE DELIVERED:
== END 2022-03-01 09:05 | disposition home or self-care (01) ==
LOC: DIORS 09:04
PROVIDERS: PCP Family Medicine; Referring Provider Family Medicine; Visit Provider Student in an Organized Health Care Education/Training Program
DX: S52.501D Unspecified fracture of the lower end of right radius, subsequent encounter for closed fracture with routine healing (principal); S52.601D Unspecified fracture of lower end of right ulna, subsequent encounter for closed fracture with routine healing; X58.XXXD Exposure to other specified factors, subsequent encounter; Z47.89 Encounter for other orthopedic aftercare
CPT/HCPCS: 73100

== ENCOUNTER 2022-04-01 10:04 | Outpatient (CLI) | payer MEDICARE, BC, SELFPAY ==
--- NOTE | 2022-04-01 10:00 | DI.RAD_ITS ---
Exam(s) XR WRIST RT LIMITED EXAM: XR WRIST RT LIMITED CLINICAL HISTORY: follow up. TECHNIQUE: 2D digital imaging was performed. Two images were obtained. PA and lateral views were ob tained. COMPARISON: CR XR WRIST RT LIMITED from 03/01/2022 FINDINGS: BONES: There are stable post operative changes present. No new fracture or dislocation. The distal r adial ulnar fractures are still visualized and are unchanged. JOINTS: The joint spaces are well maintained. No joint effusion is present. SOFT TISSUE: Normal. IMPRESSION: Stable postoperative changes. DATA REPOSITORY: RADIATION DOSE DELIVERED:
== END 2022-04-01 10:05 | disposition home or self-care (01) ==
LOC: DIORS 10:05
PROVIDERS: PCP Family Medicine; Referring Provider Family Medicine; Visit Provider Physician Assistant Surgical
DX: S52.501A Unspecified fracture of the lower end of right radius, initial encounter for closed fracture (principal); S52.601A Unspecified fracture of lower end of right ulna, initial encounter for closed fracture; X58.XXXA Exposure to other specified factors, initial encounter
CPT/HCPCS: 73100

== ENCOUNTER 2022-05-13 10:51 | Outpatient (CLI) | payer MEDICARE, BC, SELFPAY ==
--- NOTE | 2022-05-13 10:15 | DI.RAD_ITS ---
Exam(s) XR WRIST RT LIMITED EXAM: XR WRIST RT LIMITED INDICATION: right wrist ORIF. COMPARISON: CR XR WRIST RT LIMITED from 04/01/2022 TECHNIQUE: 2D digital imaging was performed. Two views. FINDINGS: There has been no change in fracture or hardware alignment. Continued healing. DATA REPOSITORY: RADIATION DOSE DELIVERED:
== END 2022-05-13 10:52 | disposition home or self-care (01) ==
LOC: DIORS 10:52
PROVIDERS: PCP Family Medicine; Referring Provider Family Medicine; Visit Provider Physician Assistant
DX: S52.501D Unspecified fracture of the lower end of right radius, subsequent encounter for closed fracture with routine healing (principal); S52.601D Unspecified fracture of lower end of right ulna, subsequent encounter for closed fracture with routine healing; X58.XXXD Exposure to other specified factors, subsequent encounter
CPT/HCPCS: 73100

== ENCOUNTER 2022-06-12 17:13 | Outpatient (REF) | payer MEDICARE, BC, SELFPAY ==
[2022-06-12 15:28] LABS: Anion Gap 4.9 mmol/L (3-11); BUN 14 mg/dL (7-18); CO2 32.1 mmol/L (21.0-32.0); CREATININE 0.9 mg/dL (0.55-1.02); Calcium 9.5 mg/dL (8.5-10.1); Chloride 107 mmol/L (98-107); Estimated GFR 68.35 (mL/min/1.73m2); Glucose 87 mg/dL (74-106); Potassium 4.5 mmol/L (3.5-5.1); Sodium 144 mmol/L (136-145)
== END 2022-06-12 17:14 | disposition home or self-care (01) ==
LOC: NCHCN 17:13
PROVIDERS: PCP Family Medicine; Visit Provider Family Medicine
DX: I10 Essential (primary) hypertension (principal)
CPT/HCPCS: 80048

== ENCOUNTER 2023-06-23 20:48 | Outpatient (REF) | payer MEDICARE, BC, SELFPAY ==
[2023-06-23 18:41] LABS: Anion Gap 8.4 mmol/L (3-11); BUN 28 mg/dL (7-18); CO2 30.6 mmol/L (21.0-32.0); Calcium 9.6 mg/dL (8.5-10.1); Chloride 105 mmol/L (98-107); Estimated GFR 59.86 (mL/min/1.73m2); Glucose 100 mg/dL (74-106); Potassium 3.8 mmol/L (3.5-5.1); Sodium 144 mmol/L (136-145)
== END 2023-06-23 20:49 | disposition home or self-care (01) ==
LOC: NCHCN 20:48
PROVIDERS: PCP Family Medicine; Visit Provider Family Medicine
DX: I10 Essential (primary) hypertension (principal)
CPT/HCPCS: 80048

== ENCOUNTER → 2023-07-24 00:58 | Outpatient (CLI) | payer MEDICARE, BC, SELFPAY ==
--- NOTE | 2023-07-24 | DI.DEXA_ITS ---
Exam(s) XR DEXA BONE DENSITY W/WO JUAQUIN EXAM: XR DEXA BONE DENSITY W/WO JUAQUIN CLINICAL HISTORY: OTHER DISORDER BONE DENSITY, M85.88 TECHNIQUE: [employer] C densitometer analysis of left hip, lumbar spine and left forearm. Lat eral survey image of the thoracic and lumbar spine. COMPARISON: DX XR DEXA BONE DENSITY W/WO JUAQUIN from 06/09/2018 FINDINGS: Lateral view of the thoracic and lumbar spine shows no evidence of compression fractures. Bone mineral density measurements of the lumbar spine correspond to a total T-score of -1.2, in the osteopenic range. This is not significantly changed from prior exam. Bone mineral density measurements of the left hip correspond to a total T-score of -1.1, in the oste openic range. This is not significantly changed from the prior exam.. The femoral neck T-score is -0.5. Theleft forearm bone mineral density measurements correspond to a T-score of the distal 3rd of -1.0 at the lower limit of normal. This represents a 5 percent decrease compared with 2018.. IMPRESSION: Osteopenia of the lumbar spine and hip. Borderline osteopenia of the forearm.
--- NOTE | 2023-07-24 | DI.MAMMO_ITS ---
Exam(s) MAMMO SCREENING EXAM: MAMMO SCREENING CLINICAL HISTORY: SCREENING, Z12.31 TECHNIQUE: Bilateral full field digital CC and MLO mammographic images were obtained with 3D tomosyn thesis and utilizing computer aided detection (CAD). COMPARISON: Available for comparison. FINDINGS: Masses/Architectural Distortion: None seen. Microcalcifications: No suspicious pleomorphic-type are seen. Skin Thickening/Nipple Retraction: None. IMPRESSION: 1. No significant interval change with no specific features of malignancy noted. 2. Unless there is more urgent need, screening mammography is recommended, as per [employer] guidelines. BI-RADS Category 1 - Negative Breast Density - Category A - Almost entirely fatty Breast density category C or D implies that the patient has dense breast tissue. Dense breast tissue is very common and is not abnormal but dense breast tissue can make it harder to find cancer on a ma mmogram. Also, dense breast tissue may increase their breast cancer risk. This information about the result of the mammogram report was provided to the patient to raise their awareness. Use this report when you speak with the patient about their risks for breast cancer, which includes their family hist ory. At that time, you may recommend for more screening tests (Ultrasound or MRI) as they might be us eful based on their risk. A negative radiographic report should not delay biopsy if a dominant or clinically suspicious mass is present. Up to ten percent of cancers are not identified on mammography. A negative report may reinforce clinical impression. Adenosis and dense breasts may obscure an underlying neoplasm. False positive reports average 6 to 10%. Patient will receive a letter notifying them of these results.
== END ==
PROVIDERS: PCP Family Medicine; Visit Provider Family Medicine
DX: M85.88 Other specified disorders of bone density and structure, other site (principal); Z12.31 Encounter for screening mammogram for malignant neoplasm of breast; Z13.820 Encounter for screening for osteoporosis
CPT/HCPCS: 77063; 77067; 77080

== ENCOUNTER 2025-05-02 17:18 | Outpatient (REF) | payer MEDICARE, BC, SELFPAY ==
[2025-05-02 21:41] LABS: HCT 42.5 % (36.0-46.0); HGB 13.5 g/dL (11.2-15.7); MCH 29.0 pg (27.0-33.0); MCHC 31.8 % (32.0-36.0); MCV 91 fL (80-95); MPV 12.4 fL (8.0-11.0); Platelet Count 237 10^3/uL (130-400); RBC 4.65 10^6/uL (3.93-5.22); RDW 12.4 % (11.7-14.6); RDW-SD 41.1 fL; WBC 12.39 10^3/uL (4.4-10.8)
[2025-05-02 22:03] LABS: ALT 25 U/L (14-59); AST 20 U/L (15-37); Albumin 4.0 g/dL (3.4-5.0); Alkaline Phosphatase 110 U/L (46-116); Anion Gap 6.8 mmol/L (3-11); BUN 20 mg/dL (7-18); Bilirubin, Total 0.5 mg/dL (0.2-1.0); CO2 31.2 mmol/L (21.0-32.0); Calcium 9.5 mg/dL (8.5-10.1); Chloride 102 mmol/L (98-107); Estimated GFR 59.12 (mL/min/1.73m2); Glucose 92 mg/dL (74-106); Potassium 3.9 mmol/L (3.5-5.1); Sodium 140 mmol/L (136-145); Total Protein 6.9 g/dL (6.4-8.2)
[2025-05-02 23:37] LABS: Hemoglobin A1C 5.4 % (<5.7)
[2025-05-03 15:15] LABS: Calculated LDL 88 mg/dL (<100); Cholesterol 176 mg/dL (<200); HDL Cholesterol 63 mg/dL (>or=50); Triglyceride 127 mg/dL (<150)
== END 2025-05-02 17:19 | disposition home or self-care (01) ==
LOC: NCHCN 17:18
PROVIDERS: PCP Family Medicine; Visit Provider Family Medicine
DX: I10 Essential (primary) hypertension (principal); Z13.1 Encounter for screening for diabetes mellitus; Z13.220 Encounter for screening for lipoid disorders
CPT/HCPCS: 80053; 80061; 85027; 83036

== ENCOUNTER 2025-05-05 02:07 | Outpatient (CLI) | payer MEDICARE, BC, SELFPAY ==
--- NOTE | 2025-05-05 15:35 | DI.MAMMO_ITS ---
Exam(s) MAMMO SCREENING EXAM: MAMMO SCREENING CLINICAL HISTORY: SCREENING MAMMO Z12.31 TECHNIQUE: Mammograms were interpreted according to the usual protocol including computer analysis with CAD system, tomosynthesis and C-view imaging. COMPARISON: 2014 through 2022 FINDINGS: The breasts are composed of mainly fatty density , Breast Density category A. No suspicious masses or suspicious microcalcifications are seen. No skin thickening or abnormal axillary lymph nodes are seen. There has been no significant change from prior exams. IMPRESSION: BI-RADS Category 1, Negative mammogram Yearly screening mammography is recommended. Breast Density- Category A - The breast are almost entirely fatty. Breast density Category C or D implies that the patient has dense breast tissue. Dense breast tissue can make it harder to find cancer on a mammogram. Dense breast tissue is also associated with an increased risk of breast cancer. This information about the result of the mammogram report was provided to the patient to raise their awareness. Use this report when you speak with the patient about their risks for breast cancer, which includes their family history. At that time, you may recommend additional screening tests (Ultrasound or MRI) as these tests may add significant information. A negative radiographic report should not delay biopsy if a dominant or clinically suspicious mass is present. Up to ten percent of cancers are not identified on mammography. A negative report may reinforce clinical impression. Adenosis and dense breasts may obscure an underlying neoplasm. False positive reports average 6 to 10%. Patient will receive a letter notifying them of these results.
== END 2025-05-05 02:27 ==
LOC: DI 02:07
PROVIDERS: PCP Family Medicine; Visit Provider Family Medicine
DX: Z12.31 Encounter for screening mammogram for malignant neoplasm of breast (principal); R92.313 Mammographic fatty tissue density, bilateral breasts
CPT/HCPCS: 77063; 77067

== ENCOUNTER 2025-07-05 14:23 | Outpatient (REF) | payer MEDICARE, BC, SELFPAY ==
[2025-07-05 16:15] LABS: Abs Immature Grans 0.03 10^3/uL (0.0-0.06); HCT 42.3 % (36.0-46.0); HGB 13.5 g/dL (11.2-15.7); Immature Grans % 0.3 %; MCH 28.5 pg (27.0-33.0); MCHC 31.9 % (32.0-36.0); MCV 89 fL (80-95); MPV 12.3 fL (8.0-11.0); Platelet Count 223 10^3/uL (130-400); RBC 4.73 10^6/uL (3.93-5.22); RDW 12.5 % (11.7-14.6); RDW-SD 41.3 fL; WBC 9.67 10^3/uL (4.4-10.8)
== END 2025-07-05 14:24 | disposition home or self-care (01) ==
LOC: NCHCN 14:23
PROVIDERS: PCP Family Medicine; Visit Provider Family Medicine
DX: D72.828 Other elevated white blood cell count (principal)
CPT/HCPCS: 85025